=== PATIENT | male | born 1975 | race Caucasian/White ===

== ENCOUNTER 2024-11-04 10:35 | Inpatient (IN) | payer MEDICAID ==
[2024-11-04] VITALS (26 sets, daily range): BP systolic 106–155; BP diastolic 60–100; PULSE 58–74; RESP 10–16; TEMP 97.6; O2SAT 94–100
[~2024-11-04] VITALS: Ht 175.3 cm; Wt 123.0 kg
[2024-11-04] MEDS: morphine 4 MG/ML inj SYRINge IV ONE (10:45)
[2024-11-04] MEDS ORDERED: heparin 10,000 units/1 ML INJ IV PRN (10:45)
[2024-11-04] MEDS: ondansetron/PF 4mg/2ml inj ONE (10:45)
[2024-11-04] MEDS ORDERED: heparin 25,000 UNIT/250ml bag 250 ML IV PRN (10:45)
[2024-11-04] MEDS: ondansetron/PF 4mg/2ml inj IV ONE (10:45)
[2024-11-04] MEDS: heparin 10,000 units/1 ML INJ IV ONE (10:49)
[2024-11-04 10:52] LABS: MEAN PLATELET VOLUME 8.2 FL (7.4-10.4); RED CELL DISTRIBUTION WIDTH 13.1 % (11.5-14.5)
--- NOTE | 2024-11-04 10:53 | Physician Documentation ---
History of Present Illness ~ Chief Complaint: Chest Pain Stated Complaint: STEMI Time Seen by MD: 10:39 OK to notify your PCP?: Yes Source: patient, EMS, EMS notes reviewed Mode of Arrival: EMS Exam Limitations: no limitations HPI Chief Complaint: Chest pain Caveat: None Independent Historians: Paramedics History of Present Illness: Patient is a 49-year-old man brought in by paramedics with substernal chest pain radiating to the back and jaw. Patient has associated shortness a breath, nausea and diaphoresis. Patient is unable to describe the pain. The pain is severe. Paramedics gave 324 of aspirin and one sublingual nitro. No change in his symptoms. Review of systems: All systems were reviewed and are negative except for what is indicated in the history of present illness. Past Medical History: None Past Surgical History: None Family history: Coronary artery disease Social History: Former smoker, quit approximately eight years ago, smokes marijuana, denies other alcohol or drug use Medications: Reviewed as documented Nursing Notes Allergies: Reviewed as documented in Nursing Notes Medication Reconciliation Allergies: Coded Allergies: No Known Allergies (Unverified , 11/04/24) Review of Systems All Other Systems at this time: Reviewed and Negative ROS Patient denies any other acute symptoms other than above. All other systems are negative Physical Exam Vital Signs: RN Vital Signs have been reviewed: Yes, Temperature: 98.1, Source: Oral, Heart Rate: 85, Respiratory Rate: 18, BP: 152/100, Pulse Oximetry: 100, Weight: 123.000 Oxygen Flow Rate: 0 Pulse Oximetry Reflects: adequate oxygenation Physical Exam General Appearance: MODERATE DISTRESS, OBESE HEENT: Normal OP, moist oral mucosa, PERRL, EOMI Neck: supple, normal ROM, trachea midline Pulmonary: No respiratory distress, CTA, BS equal Cardiac: RRR, no murmur, rub or gallop, GI: nondistended, soft, nontender, normal bowel sounds, no guarding, no rebound Extremities: normal ROM, no swelling, non-tender Skin: intact, dry, warm, no rashes Neuro: AAOx3, speech is clear, no focal motor weakness Psych: normal affect, good eye contact, no apparent hallucination, normal speech Progress Results/Orders Results/Orders Orders - KODAK SEE MD Electrocardiogram (11/04/24 10:42) Chest,Single View (11/04/24 10:42) Saline Lock (11/04/24 10:42) Monitor (11/04/24 10:42) Oxygen (11/04/24 10:42) Cbc/Diff (11/05/24 03:00) Cbc/Diff (11/06/24 03:00) Cbc/Diff (11/07/24 03:00) Cbc/Diff (11/08/24 03:00) Cbc/Diff (11/09/24 03:00) Page Hospitalist (11/04/24 12:14) Fill Out Med Reconciliation (11/04/24 12:14) Normal Saline 1000ml (Sodium Chloride 10 (11/04/24 13:20) Nitroglycerin Sublingual Tab (Nitrostat (11/04/24 13:20) Oxazepam Capsule (Serax Capsule) (11/04/24 13:20) Ondansetron Inj. (Zofran 4mg/2ml Vial) (11/04/24 13:20) Prochlorperazine Inj (Compazine Inj) (11/04/24 13:20) Hydrocodone/Apap 5/325mg Tab (Stephens 5/32 (11/04/24 13:20) Hydrocodone/Apap 10/325 (Stephens 10/325mg (11/04/24 13:20) Aspirin 81mg Chew Tablet (Aspirin 81mg C (11/05/24 08:00) Nitroglycerin Sublingual Tab (Nitrostat (11/04/24 13:35) Morphine 4mg/Ml Inj. (Morphine Inj.) (11/04/24 13:35) Prochlorperazine Inj (Compazine Inj) (11/04/24 13:35) Docusate Sod Capsule (Colace Capsule) (11/04/24 20:00) Magnesium Hydrox Oral Susp. (Milk Of Mag (11/04/24 13:35) Acetaminophen 325mg Tablet (Tylenol Tabl (11/04/24 13:35) Hydrocodone/Apap 10/325 (Stephens 10/325mg (11/04/24 13:35) Oxazepam Capsule (Serax Capsule) (11/04/24 13:35) Cyclobenzaprine Tablet (Flexeril Tablet) (11/04/24 13:35) Completed Orders - KODAK SEE MD Cbc/Diff (11/04/24 10:42) MG (11/04/24 10:42) PBNP (11/04/24 10:42) Chest,Single View (11/04/24 10:42) Pt Inr (11/04/24 10:42) PTT (11/04/24 10:42) Hs Troponin I W Calculations (11/04/24 10:42) Morphine 4mg/Ml Inj. (Morphine Inj.) (11/04/24 10:45) Ondansetron Inj. (Zofran 4mg/2ml Vial) (11/04/24 10:45) Heparin 10,000 Unit/Ml 1ml (Heparin 10,0 (11/04/24 10:45) Heparin 25,000 Unit/250ml Bag (Heparin 2 (11/04/24 10:45) Heparin 10,000 Unit/Ml 1ml (Heparin 10,0 (11/04/24 10:45) Ondansetron Inj. (Zofran 4mg/2ml Vial) (11/04/24 10:45) Tirofiban 12.5mg In Ns 250ml (Aggrastat (11/04/24 10:58) Iohexol 350mg/Ml 100ml (Omnipaque 350mg/ (11/04/24 11:01) Atropine Syringe (Atropine Syringe) (11/04/24 11:08) Epinephrine Inj Syringe (Epinephrine Inj (11/04/24 11:08) Hydromorphone 1 Mg/Ml/Pf (Dilaudid Inj.) (11/04/24 11:15) Dobutamine-Dobutrex 500mg/D5w (Dobutamin (11/04/24 11:22) Heparin 25,000 Unit/250ml Bag (Heparin 2 (11/04/24 11:34) Ticagrelor Tablet (Brilinta Tablet) (11/04/24 12:01) Hydromorphone 1 Mg/Ml/Pf (Dilaudid Inj.) (11/04/24 12:18) Medications Received in ER Medications (Trade) Dose Ordered Sig/Edgar Route PRN Reason Start Time Stop Time Status Last Admin Dose Admin (heparin 10,000 unit/ml 1ml inj) 60 UNIT/KG BOLUS FOR INIT... ONCE ONCE IV 11/04/24 10:45 11/04/24 10:46 DC 11/04/24 10:49 4,000 UNITS Vital Signs 11/04/24 10:36 Temp 98.1 Pulse 85 Resp 18 B/P (MAP) 152/100 Pulse Ox 100 O2 Flow Rate 0 Laboratory Tests Test 11/04/24 10:42 White Blood Count 11.9 H Red Blood Count 5.09 Hemoglobin 16.5 Hematocrit 47.5 Mean Corpuscular Volume 93.3 Mean Corpuscular Hemoglobin 32.3 H Mean Corpuscular Hemoglobin Concent 34.6 Red Cell Distribution Width 13.1 Platelet Count 274 Mean Platelet Volume 8.2 Neutrophils (%) (Auto) 50.5 Lymphocytes (%) (Auto) 40.1 Monocytes (%) (Auto) 7.5 Eosinophils (%) (Auto) 1.3 Basophils (%) (Auto) 0.6 Neutrophils # (Auto) 6.0 Lymphocytes # (Auto) 4.8 Monocytes # (Auto) 0.9 Eosinophils # (Auto) 0.2 Basophils # (Auto) 0.1 CBC Comment Prothrombin Time 10.1 INR International Normalized Ratio 1.0 Activated Partial Thromboplast Time 26 Coagulation Comments Magnesium Level 1.9 Troponin I High Sensitivity 134 *H Pro-B-Type Natriuretic Peptide 163 H Medical Decision Making Findings Differential diagnosis includes but is not limited to: ACUTE CORONARY SYNDROME, ST-elevation CT, PULMONARY EMBOLUS, AORTIC DISSECTION EKG independent interpretation: Performed at 10:37 a.m.. Normal sinus rhythm, heart rate 89, ST-elevation in inferior leads with ST-depression in leads one aVL and V2 Chest x-ray, single view, indication: Chest pain Independent interpretation: Lungs are clear, normal mediastinum, normal cardiac silhouette, no acute cardiopulmonary process. Laboratory data independent interpretation: CBC: Leukocytosis of 11.9 CMP: Pending 1st. Troponin: 134 Pro BNP: 163 Emergency department course/medical decision-making: Patient is a 49-year-old man with no past medical history presents with chest pain and EKG consistent with inferior CT. patient given aspirin prior to arrival. Morphine 4 mg and Zofran 4 mg IV ordered. Patient also given 4000 unit heparin bolus. Heparin also ordered. Patient's diagnosis and treatment plan discussed with the patient. Consultation/communications: Approximately 9:55 a.m.: Case discussed with bunch maker hand of incoming patient with an inferior ST-elevation CT 10:00 a.m.: Transmitted ECG from paramedics reveals ST-elevation in inferior leads with reciprocal changes consistent with an acute inferior CT 10:02 a.m.: Case discussed again with Dr. Garibay and he is on his way to take the patient to the custodial laborer Departure Time of Disposition: 10:57 Admitted to Inpatient Unit: to bunch maker hand Admission Level of Care: Critcal Care Impression: Primary Impression: ST elevation myocardial infarction (STEMI) of inferior wall Condition: Critical Education Educated: Patient Educated regarding: diagnosis, treatment Signature Scribe Signature: No scribe Attestation: No scribe KODAK SEE MD Nov 04, 2024 10:53
--- NOTE | 2024-11-04 10:57 | CONSULTATION REPORT ---
Cardiac Consultation Report Providers to CC ~ Subjective Subjective Cardiology consultation: Patient was brought in by ambulance and declared in inferior wall myocardial infarction. He is morbidly obese and does not take any medications. He denies any allergies. He has had prior right thumb removal. He is an ex-smoker. Had past hypertension now untreated and may have had elevated blood sugars that is untreated. Objective Vitals Vital Signs Date Time Temp Pulse Resp B/P (MAP) Pulse Ox O2 Delivery O2 Flow Rate FiO2 11/04/24 10:36 98.1 85 18 152/100 100 0 Lab Results: 11/04/24 1042 Objective Carotid no bruit chest clear to auscultation percussion heart no murmur heard abdomen active bowel sounds pulses plus two in upper and lower extremities nonpitting edema. Ocular motion intact no nystagmus no tremor. Patient writhing in pain. Coagulation Studies Laboratory Tests Test 11/04/24 10:42 Coagulation Comments Other Results Electrocardiogram: Typical inferior wall myocardial infarction. Problem\Assessment\Plan Additional Plan Impression inferior wall OK recommendation diuretic coronary angiography intervention. Risks benefits alternatives discussed with patient. He is in pain writhing I am not quite sure he follows the discussion. However he indicates that he wants to proceed for heart catheterization potential intervention. REI NAYAK MD Nov 04, 2024 10:57
[2024-11-04] MEDS ORDERED: tirofiban 12.5mg in NS 250mL 250 ML IV ONE (10:58)
[2024-11-04 11:04] LABS: APTT 26 SECONDS (22-32); INR 1.0 INR
--- NOTE | 2024-11-04 11:07 | RADIOLOGY REPORT ---
CHEST RADIOGRAPH Indication: CP Technique: Single frontal view of the chest was obtained Comparison: None FINDINGS: The cardiac silhouette is unremarkable. The lungs demonstrate no pulmonary airspace consolidation. Th e pulmonary vasculature is unremarkable. There is no pleural effusion.. There is no pneumothorax. IMPRESSION: No pulmonary airspace consolidation.
[2024-11-04] MEDS ORDERED: atropine 0.1mg/ml 10ml syringe ONE (11:08)
[2024-11-04] MEDS ORDERED: epiNEPHrine 0.1mg/ml 10ml syringe ONE (11:08)
[2024-11-04 11:12] LABS: PRO BRAIN NATRIURETIC PEPTIDE 163.0 PG/ML (0-125)
[2024-11-04] MEDS ORDERED: DOBUTamine-DoBUTrex 500mg/D5W 250 ML IV ONE (11:22)
[2024-11-04] MEDS ORDERED: heparin 25,000 UNIT/250ml bag 250 ML IV ONE (11:34)
--- NOTE | 2024-11-04 12:56 | CARDIAC CATH REPORT ---
Cardiology Post Cath Findings Findings Findings: Cardiology post procedure note: Left heart catheterization left ventriculography right coronary PTCA/right coronary stent. Right iliofemoral arteriogram. Indication: Inferior wall SC. hypertensive. Writhing in pain. Morbidly obese obstructive sleep apnea chronic lumbosacral disease past surgery. Right thumb surgically removed. Medically nonadherent no medications. 1. Left ventriculogram inferior hypokinesis ejection fraction 55% 2. Ectatic patulous coronary arteries 3. 100% right coronary. 0% residual postprocedure. 4. Distal left circumflex 70% stenosis prior to posterolateral branch. 5. Reperfusion arrhythmias with idioventricular rhythm, ventricular tachycardia, sinoatria arrest flat line for 5 seconds, Comment: 1. Admit patient to hospitalist program medical management 2. Continue Brilinta aspirin statins. 3. At this time he does not tolerate MERT inhibitors or beta blockers. 4. Severe chronic back pain untreated obstructive sleep apnea intolerant of CPAP. REI NAYAK MD Nov 04, 2024 12:56
[2024-11-04] MEDS ORDERED: HYDROcodone/acetaminophen 5mg/325mg tablet PO PRN ×2 (13:20→15:50)
[2024-11-04] MEDS ORDERED: normal saline 1000ml 1,000 ML IV SCH (13:20)
[2024-11-04] MEDS ORDERED: OXAZEpam 15mg capsule PO PRN (13:20)
[2024-11-04] MEDS ORDERED: ondansetron/PF 4mg/2ml inj IV PRN ×2 (13:20→15:50)
[2024-11-04] MEDS ORDERED: morphine 4 MG/ML inj SYRINge IV PRN (13:35)
[2024-11-04] MEDS ORDERED: magnesium hydroxide 30ml (MOM) UD suspension PO PRN (13:35)
[2024-11-04] MEDS ORDERED: HYDROcodone/acetaminophen 10/325mg tab PO PRN (13:35)
[2024-11-04] MEDS: HYDROcodone/acetaminophen 10/325mg tab PO PRN ×2 (14:16→18:00)
[2024-11-04] MEDS ORDERED: GABA300C PO (15:02)
[2024-11-04] MEDS ORDERED: magnesium sulf-water 4G/100mL 100 ML IV PRN (15:50)
[2024-11-04] MEDS ORDERED: magnesium sulf-water 2g/50mL 50 ML IV PRN (15:50)
[2024-11-04] MEDS ORDERED: potassium Cl 20 mEq SR tablet PO PRN ×2 (15:50)
[2024-11-04] MEDS ORDERED: magnesium Cl slow-release 64mg tablet PO PRN (15:50)
[2024-11-04] MEDS ORDERED: potassium Cl 40MEQ/1/2NS 520ml 520 ML IV PRN (15:50)
[2024-11-04] MEDS ORDERED: HYDROmorphone inj. 0.5 MG/0.5 ML DISP.SYRIN IV PRN (15:50)
[2024-11-04] MEDS: normal saline 1000ml 1,000 ML IV SCH (15:50)
--- NOTE | 2024-11-04 16:48 | HISTORY AND PHYSICAL ---
History & Physical Providers to CC ~ History of Present Illness Reason for Admit\\Complaint: Chest pain History of Present Illness Patient is a 49-year-old man brought in by paramedics with substernal chest pain radiating to the back and jaw. Patient has associated shortness a breath, nausea and diaphoresis. Further workup was done in ER, patient given aspirin prior to arrival. Morphine 4 mg and Zofran 4 mg IV ordered. Patient also given 4000 unit heparin bolus. Heparin also ordered. Patient's diagnosis and treatment plan discussed with the patient by ER doctor . As per ER record" Consultation/communications: Approximately 9:55 a.m.: Case discussed with clearance cutter of incoming patient with an inferior ST-elevation [place] 10:00 a.m.: Transmitted ECG from paramedics reveals ST-elevation in inferior leads with reciprocal changes consistent with an acute inferior [place] 10:02 a.m.: Case discussed again with Dr. Garibay and he is on his way to take the patient to the animal laboratory helper" I evaluated the patient after he had cardiac catheterization done and had stent placed in RCA. As per nursing staff discontinued heparin and aggressive date at 2:00 p.m. today. Patient denied any shortness of breaths or any ongoing chest pain to me when I evaluated him. Patient's two daughters was present at bedside. Patient's all labs and diagnostic workup reviewed. X-ray chest showed no pulmonary airspace consolidation. As per patient's daughter patient has hypertension and GERD currently he is not taking any medication for blood pressure control. Only takes gabapentin for his fibromyalgia. Denied any alcohol tobacco use but she has a cannabis user which he use almost everyday. He is able to ambulate denied any other concerns. Patient follows in [facility] with PCP. Allergies: Coded Allergies: No Known Allergies (Unverified , 11/04/24) Home Medications Home Medications Active Reported Neurontin (Gabapentin) 300 Mg Capsule 4 Cap PO HS 30 Days Past Medical History Past Medical History HTN , GERD Past Surgical History Surgical History Comment No significant Surgical history Past Social History Social History Comment Former smoker, quit approximately eight years ago, smokes marijuana, denies other alcohol or drug use ROS ROS All systems were reviewed and are negative except for what is indicated in the history of present illness. Exam Vitals: Vital Signs Date Time Temp Pulse Resp B/P (MAP) Pulse Ox O2 Delivery O2 Flow Rate FiO2 11/04/24 16:15 64 14 130/85 98 Room Air 11/04/24 10:36 98.1 0 General: General-patient not in any acute distress, alert awake oriented, morbidly obese HEENT-atraumatic normocephalic, neck supple without elevated JVD, no thyromegaly or carotid bruit. No lymphadenopathy bilaterally. Eyes-no icterus or pallor seen in eyes Chest-clear to auscultation bilaterally, breathing nonlabored no tachypnea, no wheezing, no crepitation, no crackles. Heart-S1-S2 normal, regular heart rate no murmur Abdomen bowel sounds positive on auscultation, soft nondistended nontender no guarding, no rigidity Skin- surgical dressing present over right groin no visible hematoma Neurology-grossly intact, nonfocal alert awake oriented Extremity- no pedal edema able to move all 4 extremities Psychiatry - patient is not confused or agitated cooperated during physical examination Diagnostic Data Last Recorded Lab Results: 11/04/24 1042 Diagnostic Data: Laboratory Tests Test 11/04/24 10:42 Prothrombin Time 10.1 SECONDS (9.0-12.0) INR International Normalized Ratio 1.0 INR Activated Partial Thromboplast Time 26 SECONDS (22-32) Coagulation Comments Additional Plan # Patient is a 49-year-old man brought in by paramedics with substernal chest pain radiating to the back and jaw. Patient is diagnosed with an inferior ST- elevation [place]/ patient had cardiac catheterization done and had stent placed in RCA. Further cardiac management for cardiac stent and STEMI as per automotive parts specialist Dr. Garibay . we will continue to monitor patient in PCU # patient also has hypertension and GERD currently he is not taking any medication for blood pressure control. Only takes gabapentin for his fibromyalgia. We will continue to monitor patient's vitals and blood pressure closely. # Denied any alcohol tobacco use but she has a cannabis user which he use almost everyday. # status discussed with the patient patient wishes to stay full code daughters were present at bedside when I discussed code status with him. Patient's current condition is guarded further management depending on response to treatment. We will follow the patient in a.m.. Date of Service: Nov 04, 2024 Billing Provider: ROSEMARY NAVARRO MD Common Visit Codes: 10898-MASFNVT INP/OBS CARE (HIGH) Secondary Visit Codes: 01638-SAOLMJDJ CARE PLAN 30 MINUTES ROSEMARY NAVARRO MD Nov 04, 2024 16:48
[2024-11-04] MEDS: OXAZEpam 15mg capsule PO PRN (18:00)
[2024-11-04 18:41] LABS: CREATININE 1.02 MG/DL (0.60-1.10); TOTAL CARBON DIOXIDE 23.0 MMOL/L (24-32); eCRCL 87 ML/MIN; eGFR 77 ML/MIN
[2024-11-04] MEDS: docusate sod 100mg capsule PO SCH (20:00)
[2024-11-04] MEDS: K and/or MAG REPLACEMENT MC SCH (20:00)
[2024-11-04] MEDS: heparin, porcine 5000 units/ml vial SQ SCH (20:30)
[2024-11-05] VITALS: BP 121/74; PULSE 65; RESP 15
[2024-11-05 04:00] VITALS: BP 114/78; PULSE 67; RESP 13
[2024-11-05 06:06] VITALS: BP 128/78; PULSE 68; RESP 18; TEMP 97.6; O2SAT 97
[2024-11-05 06:14] LABS: MEAN PLATELET VOLUME 8.3 FL (7.4-10.4); RED CELL DISTRIBUTION WIDTH 13.6 % (11.5-14.5)
[2024-11-05 06:33] LABS: CREATININE 0.94 MG/DL (0.60-1.10); TOTAL CARBON DIOXIDE 24.6 MMOL/L (24-32); eCRCL 94 ML/MIN; eGFR 85 ML/MIN
[2024-11-05 07:56] VITALS: BP 128/78; PULSE 68; RESP 18; TEMP 97.6; O2SAT 97
[2024-11-05 11:21] VITALS: BP_SYST 122; BP_SYST 175; BP_DIAS 103; BP_DIAS 81; PULSE 60; PULSE 72; RESP 16; RESP 19; TEMP 97.2; O2SAT 97; O2SAT 98
[2024-11-05 12:31] VITALS: O2SAT 98
[2024-11-05] MEDS ORDERED: heparin 10,000 units/1 ML INJ ONE (13:00)
--- NOTE | 2024-11-05 14:13 | CARDIOLOGY REPORT ---
APPROVED REPORT EXAM: Comprehensive 2D, Doppler, and color-flow Echocardiogram. Patient Location: 3024B Blood Pressure: 152/100 mmHg Heart Rate: 59 bpm Indications STEMI Troponin: 134 ProBNP: 164 S/P Angiogram w/Stent x 1 PUBLISHING MANAGER: Alla Garibay MD NO Previous ECHO 2D Dimensions LA Diam3.8 cm IVSd 1.3 (0.7-1.1cm) LVDd 3.7 cm PWd 1.2 (0.7-1.1cm) IVSs 1.3 (0.8-1.2cm) LVDs 3.0 (2.5-4.0cm) PWs 2.0 (0.8-1.2cm) LVOT Diameter 2.37 (1.8-2.4cm) LVEF(%) 41.4 (>50%) Ao Asc Diam.3.02 cm FS (%) 19.8 % SV 23.9 ml CO 1.5 L/min M-Mode Dimensions Aortic Root 4.07 (2.2-3.7cm) Aortic Cusp Exc 1.74 (1.5-2.0cm) Aortic Valve AoV Peak Cesario. 101.8 cm/s AoV VTI 21.7 cm AO Peak GR. 4.1 mmHg AO Mean GR. 2 mmHg LVOT VTI 17.98 cm LVOT Peak Cesairo. 86.6 cm/s [place](VTI)/BSA 3.66 cm2/m2 [place] (VTI) 3.66 cm2 Mitral Valve MV E Velocity 61.2 cm/s MV Peak Gr. 2 mmHg MV DECEL TIME 208 ms MV A Velocity 53.9 cm/s MV PHT 88 ms E/A Ratio 1.1 MVA (PHT) 2.50 cm2 MV VMax71.9 cm/s TDI Lateral E' P. V7.12 cm/s E/Lateral E' 8.6 Tricuspid Valve TR P. Velocity 168 cm/s RAP ESTIMATE 10 mmHg TR Peak Gr. 11 mmHg RVSP 21 mmHg LEFT VENTRICLE Normal LV size with mildly decreased function. Mild concentric hypertrophy. Inferior hypokinesia seen . Overall LVEF is about 50%. Technically difficult study. RIGHT VENTRICLE RV is normal size and function. ATRIA The left atrium size is normal. AORTIC VALVE Trileaflet AV appears mildly sclerotic without stenosis. No insufficiency. MITRAL VALVE Mild mitral annular calcification without stenosis. Trace regurgitation. TRICUSPID VALVE Tricuspid valve is grossly normal in structure with trace regurgitation. PULMONIC VALVE Pulmonic valve is grossly normal in structure without insufficiency. GREAT VESSELS The aortic root is normal in size. The ascending aorta is normal in size. IVC was not seen. PERICARDIUM Normal pericardium. No effusion. Anterior epicardial fat pad is present. Other Information Study Quality: Poor due to body habitus and supine position Conclusion Overall LVEF is about 50%. Technically difficult study. Normal LV size with mildly decreased function. Mild concentric hypertrophy. Inferior hypokinesia s een. RV is normal size and function. Trileaflet AV appears mildly sclerotic without stenosis. No insufficiency. Mild mitral annular calcification without stenosis. Trace regurgitation. Tricuspid valve is grossly normal in structure with trace regurgitation. Pulmonic valve is grossly normal in structure without insufficiency. Normal pericardium. No effusion. Anterior epicardial fat pad is present.
[2024-11-05] MEDS ORDERED: TICA90TA PO (14:22)
--- NOTE | 2024-11-05 14:49 | PROGRESS NOTE ---
Progress Note Cardiology Providers to CC ~ Subjective Subjective Cardiology progress note: Status post inferior wall VT rescue PTCA stent deployment day one. Nursing staff tells me patient is using a lot of expletives very difficult. is depressed and hostile. Patient without angina. Trying to figure out medication coverage. He has been up out of bed and is asymptomatic. He had a jt course during the intervention. He will be seeing [facility] in follow-up. [facility] medications aspirin Brilinta Lipitor. Objective Result Diagram: 11/05/24 0537 11/05/24 0537 Objective Carotid no bruit chest clear to auscultation percussion heart no murmur no S3 gallop no rub abdomen active bowel sounds nontender pulses plus two upper and lower. Right femoral artery well healed. No hematoma. Coagulation Studies Laboratory Tests Test 11/04/24 10:42 Prothrombin Time 10.1 SECONDS (9.0-12.0) INR International Normalized Ratio 1.0 INR Activated Partial Thromboplast Time 26 SECONDS (22-32) Coagulation Comments Problem\Assessment\Plan Additional Plan Assessment: Stable post inferior wall VT. Medications are being arranged. Unhappy to be in the hospital. Recommendation: If his insurance covers his medication most especially the Brilinta then he could potentially be discharged today. If his insurance does not cover Brilinta then he needs to be switched to Plavix initial dose 300 mg p.o. then 75 mg daily. And he should definitely wait until tomorrow for discharge. REI NAYAK MD Nov 05, 2024 14:49
[2024-11-05] MEDS ORDERED: ATOR20TA66 PO (15:56)
[2024-11-05] MEDS ORDERED: ASPI81TA53 PO (15:56)
--- NOTE | 2024-11-05 16:14 | DISCHARGE SUMMARY-Residence ---
Discharge Summary Providers to CC Resident Creating Document: BENTLEY BRAMBILA, RES ~ Discharge Summary Admission Diagnosis: STEMI , S/P stent in RCA , HTN , morbid obesity Hospital Course DATE OF ADMISSION: November 04, 2024 DATE OF DISCHARGE: November 05, 2024 PATIENT IS VERY EGAR TO GO HOME TODAY . AND PATIENT DON'T WANT TO STAY . Discharge Diagnosis\Comment: CAD, S/P STEMI S/P RCA stent Hypertension Elevated transaminases, likely reactive Obesity Operations\Procedures: Right heart catheterization/angiography Consultants: Dr. Garibay Complications: Non Condition on DC: Stable New Medications: Aspirin (Children's Aspirin) 81 Mg Tab.chew 81 MG PO DAILY for 30 Days, #30 TAB.CHEW Atorvastatin Calcium (Atorvastatin Calcium) 20 Mg Tablet 40 MG PO DAILY for 30 Days, #30 TAB Ticagrelor (Brilinta) 90 Mg Tablet 90 MG PO BID for 30 Days, #60 TAB 1 Refill Continued Medications: Gabapentin (Neurontin) 300 Mg Capsule 4 CAP PO HS for 30 Days, #90 CAP 0 Refills Discharge Summary: Hospital course: This is a 49-year-old male who presented with substernal chest pain radiating to the back and left jaw, associated with shortness of breath, nausea, and diaphoresis. He was brought in by paramedics and received aspirin EN route. In the ER, he was given a 4000 unit heparin bolus and started on heparin drip. ECG showed an inferior ST-elevation myocardial infarction/STEMI, the case was discussed with the on-call rabbet operator, Dr. Florez, who took the patient emergently to the catheterization lab. Left heart catheterization revealed a lesion in the right coronary artery, for which a stent was placed. Past medical history significant for hypertension and GERD; he is not on any home medications. BMI was 40, consistent with morbid obesity. Today, the patient was adamant on going home PRN he is discharged today on Brilinta 90 mg twice daily, aspirin 81 mg daily, and atorvastatin 40 mg daily, with the instruction for cardiac risk factor modification. He will follow up with Dr. Garibay in two weeks and with his primary care physician in one week. Discharge instructions: Take aspirin and Brilinta exactly as directed; DO NOT STOP THESE TWO MEDICATIONS WITHOUT YOUR RFID MANAGER'S APPROVAL. Refill all medications on time and never missed doses. Continue all other heart medication as prescribed. Follow up with Dr. Garibay in two weeks. Address: [facility] [address], [place] [address] Follow heart healthy, low-salt, low-fat diet. Do not smoke and limit alcohol intake. Follow up with your primary care doctor within one week Return to ER or call 911 if you have severe chest pain, severe shortness of breath, dizziness, or fainting. Discharge medications: See above Discharge physical exam: Vital Signs Date Time Temp Pulse Resp B/P (MAP) Pulse Ox O2 Delivery O2 Flow Rate FiO2 11/05/24 12:31 98 Room Air* 0 21 11/05/24 11:21 97.2 72 16 122/81 (95) General: Awake and Alert, no acute distress. HEENT: Conjunctiva pink, Sclera clear, Mucus Membranes moist. Neck: Supple without masses and tenderness. Resp: Unlabored. Lungs clear to auscultation bilaterally. Heart: Regular Rate and rhythm, normal S1 and S2 without murmur, rub or gallop. Abdomen: Soft and non tender no organomegaly Extremities: Incision site in the right groin area is clean and dry, dressing applied, no leakage or discharge or swelling. Skin: Warm and Dry. Discharge lab: CBC: WBC 11.8, RBC 4.53, hemoglobin 14.5, hematocrit 42, platelet counts 222 Metabolic profile: Sodium 140, potassium 3.8, BUN/creatinine 10/0.94, EGFR 85, calcium 8.5, bilirubin 0.5, AST/ALT 171/79, alkaline phosphatase 93, total protein 7.0, albumin 3.1, *Problems/Diagnosis: (1) ST elevation myocardial infarction (STEMI) of inferior wall Status: Acute Total Time Spent on D/C: Up to 30 Minutes Date of Service: Nov 05, 2024 Billing Provider: ROSEMARY NAVARRO MD Common Visit Codes: 85960-AZA/OBS DISCH DAY <30MIN BENTLEY BRAMBILA, RES Nov 05, 2024 16:10 ROSEMARY NAVARRO MD Nov 06, 2024 15:21
--- NOTE | 2024-11-05 16:19 | CARDIOLOGY REPORT ---
DATE OF SERVICE: 11/04/2024 DICTATING PHYSICIAN: Luis Garibay MD LOCATION: [place], [place]. PROCEDURES: * Left heart catheterization. * Left ventriculography. * Selective left and right coronary arteriography. * Right coronary artery PTCA. * Right coronary artery stent. * Conscious sedation administration 75 minutes. * Right iliofemoral arteriogram. BRIEF HISTORY/INDICATION: A 49-year-old male who does not see physicians, presented with inferior wall OH, uncontrolled hypertension, obesity, obstructive sleep apnea that he does not treat, and chronic low back pain. 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 TECHNIQUE: Following usual sterile preparation and draping, the right groin was infiltrated with 10 mL of 1% lidocaine local anesthetic. Conscious sedation, back pain was treated with 2 mg Versed, 2 mg Dilaudid, and 100 mcg fentanyl. The patient received 6000 units of heparin bolus. He is on infusion at 1400 per hour. Aggrastat was initiated and maintenance dose was continued. Following single-wall puncture technique, J-tip guidewire lead, a 6-[place] sheath was introduced to the right femoral artery. Selective left and right coronary arteriography was performed. Intervention was initiated with a 0.014 wire followed by a 2.5 mm x 15 mm Trek balloon that due to severity of obstruction would have anterior and posterior motion during repeated inflation. Total obstruction was improved to 95+%. An [place] stent could not be passed due to angulation. Repeat balloon inflations were performed with a 3.5 mm x 15 mm Trek to 16 atmospheres. A 6-[place] femoral right 4 guide was substituted with a 6-[place] right backup guide. Once again, a stent could not be passed due to acute 180-degree angulation proximally. A GuideLiner was positioned within the proximal right coronary, and subsequently, a 4.5 mm x 20 mm [place] stent was deployed to 18 atmospheres. Repeat angiography was performed with wire in place. Repeat angiography was performed with wire not present. LEFT VENTRICULOGRAM: Left ventriculography in right anterior oblique projection was performed. Catheter exchanges were outperformed under fluoroscopic guidance with J-tip guidewire lead. During reperfusion, the patient had sinoatrial arrest, 2:1 heart block, 5-second flat line, idioventricular rhythm 100 per minute, blood pressure 90/60, relatively slow ventricular tachycardia at 140 for less than 30 seconds. At termination, right iliofemoral arteriogram was performed. Sheath was sewn in place. Arrangements were made to return the patient to recovery. Angio-Seal to be performed later. 150 mL of Omnipaque 350 contrast was administered. Fluoroscopy time was 17.7 minutes. Radiation exposure 24,606 cGy per cm2. COMMENT: Throughout the procedure, the patient was anxious, complaining, restless, chronic back pain. FINDINGS: 5 feet 8 inches, 300 pounds stated. AO 111/75, LV 111/3-12. LEFT VENTRICULOGRAM: Mid inferior severe hypokinesis, ejection fraction of 60%. Left ventricular hypertrophy noted. Right iliofemoral artery is smooth. There is an irregular ectatic 5 mm wide left main coronary artery. There is an irregular ectatic proximal to mid left anterior descending 8 mm wide segment. There is a first diagonal 2 mm in diameter that arises proximally. There is a 40% mid left anterior descending followed by a second diagonal 1.5 mm in diameter and a third diagonal 1.5 mm and the left anterior descending that is 1 mm in diameter and reaches the apex of the myocardium. Left circumflex proximal is 3.5 mm in diameter. There is a high takeoff first obtuse marginal 1.75 mm with 30% proximal narrowing. There is a long mid left circumflex with a distal ectatic segment to 4 mm with an eccentric irregular 60% bite-like narrowing. Then, it provides three 1 mm smooth posterolateral branches that are small and short. Faint left or right collateralization is noted to the distal right coronary. Right coronary is 100% obstructed, 5 mm wide ectatic vessel. INTERVENTION: 100% obstruction reduced to 0%. Post intervention, mid right coronary ectatic 4 mm to 4.5 mm in diameter with multiple 20% narrowings. Posterior descending and posterolateral 2 mm in diameter, smooth, and reached the apex of the myocardium. RESULTS: * Severe mid inferior hypokinesis, ejection fraction 60%. * Left ventricular hypertrophy. * Irregular ectatic 5 mm wide left main coronary artery. * Irregular ectatic proximal and mid left anterior descending up to 8 mm in diameter. * 40% mid left anterior descending, supplying a second and a third diagonal and a 1 mm distal left anterior descending. * 30% narrowing in first obtuse marginal, 1.75 mm diameter. Distal left circumflex is 60% ectatic narrowing, 4 mm diameter. Provides 3 small smooth posterolateral branches. * 100% right coronary 5 mm ectatic vessel. * Post intervention, AJ-3 flow mid right coronary 4 mm diameter ectatic with 20% narrowings. Posterior descending and posterolateral 2 mm, smooth, reach apex. COMMENT: The patient will be continued on Brilinta, aspirin, and statins. Initially, his blood pressure and heart rate did not tolerate any beta blockers. Heparin and Aggrastat to be discontinued in 2 hours, at which time, Angio-Seal will be performed. Home anticipated in 48 hours if remains stable. Depends on further progress. Luis Garibay MD TID: [id number] RECEIPT: [id number] TR/SEBLE cc: Hospitalist Program, [facility]
--- NOTE | 2024-11-05 17:22 | ELECTROCARDIOGRAPH REPORT ---
[facility] Test Date: 2024-11-04 Test Time: 10:37:46 Pat Name: TERI CLAIRE Department: EMERGENCY ROOM Room: [place] [address] Gender: M [employer]: AMAYA : 1975 Requested By: KODAK SEE Order Number: [id number] Reading MD: Measurements Intervals [place] Rate: 89 P: 106 CA: 144 QRS: 84 QRSD: 98 T: 100 QT: 346 QTc: 421 Interpretive Statements Sinus rhythm Inferior infarct, acute (RCA) Probable RV involvement, suggest recording right precordial leads Please click the below link to view image of tracing.
== END 2024-11-05 16:48 | disposition home or self-care (01) | DRG 174 ==
LOC: ER 10:36 → PCU 3S 12:30
PROVIDERS: ADMIT Internal Medicine Cardiovascular Disease; ATTEND Internal Medicine Cardiovascular Disease
PROC: 027034Z Dilation of Coronary Artery, One Artery with Drug-eluting Intraluminal Device, Percutaneous Approach (ICD-10-PCS; principal; 2024-11-04)
PROC: 4A023N7 Measurement of Cardiac Sampling and Pressure, Left Heart, Percutaneous Approach (ICD-10-PCS; 2024-11-04)
PROC: B2111ZZ Fluoroscopy of Multiple Coronary Arteries using Low Osmolar Contrast (ICD-10-PCS; 2024-11-04)
PROC: B2151ZZ Fluoroscopy of Left Heart using Low Osmolar Contrast (ICD-10-PCS; 2024-11-04)
PROC: B41F1ZZ Fluoroscopy of Right Lower Extremity Arteries using Low Osmolar Contrast (ICD-10-PCS; 2024-11-04)
DX: I21.19 ST elevation (STEMI) myocardial infarction involving other coronary artery of inferior wall (principal); E66.01 Morbid (severe) obesity due to excess calories; I10 Essential (primary) hypertension; K21.9 Gastro-esophageal reflux disease without esophagitis; M79.7 Fibromyalgia; I25.10 Atherosclerotic heart disease of native coronary artery without angina pectoris; R74.01 Elevation of levels of liver transaminase levels; Z87.891 Personal history of nicotine dependence; Z82.49 Family history of ischemic heart disease and other diseases of the circulatory system; Z68.41 Body mass index [BMI] 40.0-44.9, adult
CPT/HCPCS: 36415; 71045; 80053; 83735; 83880; 84484; 85025; 85610; 85730; 87081; 93005; 93306; 93458; 96374; 99152; 99153; 99285; A6258; C1725; C1751; C1760; C1769; C1874; C1892; C1894; C9606; G0378; J0171; J0461; J1171; J1250; J1644; J1650; J2470; J3246; J7030; Q9967